=== PATIENT | male | born 1945 | race Caucasian/White ===

== ENCOUNTER 2017-01-31 10:38 | Outpatient (CLI) | payer MEDICARE ==
[2017-01-31 12:27] LABS: #Eosinphils 0.1 thou/uL (0.0-0.7); #Lymphocytes 2.1 thou/uL (1.20-3.40); #Monocytes 0.4 thou/uL (0.11-0.59); #Neutrophils 3.8 thou/uL (1.40-6.50); %Basophils 0.6 % (0.0-1.0); %Eosinophils 1.1 % (0.0-10.0); %Lymphocytes 32.7 % (21.0-51.0); %Monocytes 6.6 % (0.0-10.0); Hematocrit 43.9 % (42.0-52.0); Mean Platelet Volume 9.6 fL (7.4-10.4); Red Blood Cell (RBC) Count 4.56 mill/uL (4.70-6.10); White Blood Cell (WBC) Count 6.4 thou/uL (4.8-10.8)
[2017-01-31 12:43] LABS: Anion Gap 10 mmol/L (10-20); BUN (Urea Nitrogen) 17 mg/dL (8.4-25.7); Calc. Creatinine Clearance 0 mL/min (70-130); Calcium 9.1 mg/dL (7.8-10.44); Carbon Dioxide 26 mmol/L (23-31); Chloride 105 mmol/L (98-107); Estimated GFR-MDRD Greater than 90
--- NOTE | 2017-02-03 06:47 | EKG ---
Test Reason : Blood Pressure : / mmHG Vent. Rate : 066 BPM Atrial Rate : 066 BPM P-R Int : 156 ms QRS Dur : 092 ms QT Int : 400 ms P-R-T Axes : 069 091 043 degrees QTc Int : 419 ms Normal sinus rhythm with sinus arrhythmia Rightward axis Borderline ECG No previous ECGs available Confirmed by SILVIA CROWLEY ([id number]) on 02/03/2017 6:47:08 AM Referred By: LINDY Confirmed By:SILVIA CROWLEY
--- NOTE | 2017-02-03 13:17 | RAD ---
PA AND LATEARL VIEWS OF CHEST: Date: 01/31/17 HISTORY: Preoperative evaluation. FINDINGS: Comparison made with exam of 10/08/15. FINDINGS: The heart size is normal. The lungs are well expanded without focal areas of consolidation, pneumoth orax, or pleural effusions. There are changes of DISH of spine. IMPRESSION: No radiographic evidence of acute cardiopulmonary process. POS: [facility]
== END 2017-01-31 10:39 | disposition home or self-care (01) ==
LOC: LABBT 10:38
PROVIDERS: ATTEND Orthopaedic Surgery
DX: Z01.818 Encounter for other preprocedural examination (principal); M75.102 Unspecified rotator cuff tear or rupture of left shoulder, not specified as traumatic
CPT/HCPCS: 71020; 80048; 85025; 93005; 93010

== ENCOUNTER 2017-02-04 07:34 | Day surgery (SDC) | payer MEDICARE ==
[2017-01-31 11:15] VITALS: BMI 24.2
[2017-02-04] MEDS ORDERED: Ropivacaine 0.2% HCl/PF 20 ML ONE (08:10)
[2017-02-04] MEDS ORDERED: Midazolam HCl 2 mg/2 ml Vial ONE (08:10)
[2017-02-04] MEDS ORDERED: Lidocaine 1% (PF) 30 ML VIAL ONE (08:10)
[2017-02-04] MEDS ORDERED: Fentanyl 100 MCG/2 ML VIAL ONE (08:10)
[2017-02-04] MEDS ORDERED: Ondansetron HCl/PF 4 MG/2 ML Vial IVP PRN (08:40)
[2017-02-04] MEDS ORDERED: traMADol HCl 50 MG TAB PO PRN ×2 (08:40)
[2017-02-04] MEDS ORDERED: HYDROcodone/Acetaminophen 10/325 mg Tablet PO PRN ×2 (08:40)
[2017-02-04] MEDS ORDERED: Zolpidem Tartrate 5 MG TAB PO PRN (08:40)
[2017-02-04] MEDS ORDERED: Ropivacaine 0.2% 550 ML 550 ML NERVE BLCK SCH (08:40)
[2017-02-04] MEDS ORDERED: Promethazine HCl 25 MG/ML VIAL IM PRN (08:40)
[2017-02-04] MEDS ORDERED: Fentanyl 100 MCG/2 ML VIAL IV PRN (08:41)
--- NOTE | 2017-02-04 11:25 | OP ---
DATE OF PROCEDURE: 02/04/2017 PREOPERATIVE DIAGNOSIS: Rotator cuff, left shoulder. POSTOPERATIVE DIAGNOSES: Rotator cuff, left shoulder. SURGERY: Arthroscopic subacromial decompression, arthroscopic rotator cuff repair. SURGEON: Koby Garces M.D. ANESTHESIA: General. BLOOD LOSS: Minimal. SPECIMEN: None. DRAINS: None. COMPLICATIONS: None. STUDIO COORDINATOR: None. PROCEDURE: The patient was taken to the operating room where general anesthesia was induced. The p atient placed in right lateral decubitus position. Left arm was placed in traction and prepped and draped in the usual sterile fashion. Scope was placed in the glenohumeral joint, which just had larry e mild degenerative changes appropriate for age and there was a full-thickness rotator cuff tear. S cope was placed in the subacromial bursa. He had a longitudinal tear extending essentially from the glenoid all the way out laterally over the greater tuberosity. I did an anterior and inferior acro mioplasty, removed the CA ligament, extensive bursectomy was performed. I debrided the rotator cuff back to better tissue. I placed 4 side to side sutures with a very good opposition of the tissues, then placed a single anchor laterally and passed sutures through the cuff, tied the tendon down to freshen up cancellous bone. Shoulder was then drained, and portals closed with nylon suture and isac rile dressings applied. There were no complications.
== END 2017-02-04 13:40 ==
LOC: SDC 07:34
PROVIDERS: ATTEND Orthopaedic Surgery
PROC: 0LB24ZZ Excision of Left Shoulder Tendon, Percutaneous Endoscopic Approach (ICD-10-PCS; principal; 2017-02-04)
DX: M75.122 Complete rotator cuff tear or rupture of left shoulder, not specified as traumatic (principal); D17.79 Benign lipomatous neoplasm of other sites; G40.909 Epilepsy, unspecified, not intractable, without status epilepticus; J44.9 Chronic obstructive pulmonary disease, unspecified; Z90.89 Acquired absence of other organs; Z98.52 Vasectomy status; Z98.890 Other specified postprocedural states; Z87.891 Personal history of nicotine dependence; Z79.51 Long term (current) use of inhaled steroids
CPT/HCPCS: 29827; 97110; 97139; A4306; G8984; G8985; G8986; J2001; J2250; J2795; J3010

== ENCOUNTER 2020-03-12 05:44 | Outpatient (CLI) | payer MEDICARE ==
[2020-03-12 08:55] LABS: Hemoglobin 14.7 g/dL (14.0-18.0); Mean Corpuscular HGB CONC 33.3 G/DL (32.0-36.0); Mean Corpuscular Hemoglobin 31.3 PG (27.0-33.0); Mean Platelet Volume 11.3 fl (7.4-10.4); Platelet Count 154 10x3/uL (130-400); RBC Distribution Width 11.8 % (11.5-14.5); White Blood Cell (WBC) Count 6.3 10x3/uL (4.5-11.0)
[2020-03-12 09:38] LABS: Anion Gap 11 mmol/L (10-20); BUN (Urea Nitrogen) 15 mg/dL (8.4-25.7); Calc. Creatinine Clearance 0 mL/min (70-130); Calcium 9.1 mg/dL (7.8-10.44); Carbon Dioxide 32 mmol/L (23-31); Chloride 100 mmol/L (98-107); Estimated GFR-MDRD Greater than 90; Glucose 111 mg/dL (83-110); Potassium 4.5 mmol/L (3.5-5.1); Sodium 138 mmol/L (136-145)
[2020-03-13 18:38] LABS: SARS-CoV-2 MS2 Positive; SARS-CoV-2 N Gene Negative; SARS-CoV-2 S Gene Negative; SARS-CoV-2 by NAA Not Detected (NotDetected); SARS-CoV-2 orf1ab Negative
== END 2020-03-12 05:45 | disposition home or self-care (01) ==
LOC: LABBT 05:44
PROVIDERS: ATTEND Neurological Surgery
DX: Z01.818 Encounter for other preprocedural examination (principal); Z20.828 Contact with and (suspected) exposure to other viral communicable diseases; M54.16 Radiculopathy, lumbar region
CPT/HCPCS: 80048; 85027; U0003; 87635

== ENCOUNTER 2020-03-12 08:00 | Inpatient (IN) | payer MEDICARE ==
[2020-03-14 09:52] VITALS: BMI 25.0
[2020-03-17] MEDS ORDERED: Fentanyl 250 MCG/5 ML VIAL ONE (09:25)
[2020-03-17] MEDS ORDERED: Promethazine HCl 25 MG/ML VIAL SLOW IVP PRN (11:03)
[2020-03-17] MEDS ORDERED: Ondansetron HCl/PF 4 MG/2 ML Vial IVP PRN (11:03)
[2020-03-17] MEDS ORDERED: HYDROmorphone 2 MG/ML VIAL SLOW IVP PRN (11:03)
[2020-03-17] MEDS ORDERED: Promethazine HCl 25 MG/ML VIAL IM PRN ×2 (11:03→12:45)
[2020-03-17] MEDS ORDERED: Fentanyl 100 MCG/2 ML VIAL ONE (11:08)
--- NOTE | 2020-03-17 12:04 | OP ---
DATE OF PROCEDURE: 03/17/2020 LURE MAKER: Alyssa Arreola PA-C PROCEDURES PERFORMED: Removal of hardware, L5-S1; exploration of spinal fusion, L5-S1; right L4-L5 laminectomy, facetectomy, foraminotomy; interbody arthrodesis, intervertebral biomechanical device, local morselized autograft, demineralized bone matrix, posterolateral arthrodesis pedicle screw instrumentation, L4 through S1. DESCRIPTION OF PROCEDURE: The patient was brought to the operating room and intubated. He was rolled in a prone position on gel-filled chest rolls. The previous incision was reopened and extended, exposing L4 through S1. We identified the prior hardware. We removed the nuts and rods. Then, explored the L5-S1 fusion and I could not determine whether this was solid. We next exposed L4-L5, performed a right L4-L5 laminectomy, facetectomy, foraminotomy, and diskectomy. We identified the herniated disk fragment and removed this and completely decompressed the right L4 and L5 nerve roots. We incised the L4-L5 disk and completely debrided it. The bony endplates were then decorticated for the purpose of arthrodesis and appropriate-sized intervertebral biomechanical PEEK device was brought into the field, filled with demineralized bone matrix and local morselized autograft, and tapped in place securely at L4-L5. Next, pedicle screw was placed at L4 and the pedicle screw at L5 was replaced as it had been in the way of the decompression. The moise was then secured between these screws, connected by nuts, which were final tightened. The wound was then extensively irrigated and MAC hemostasis was secured. A combination of demineralized bone matrix, local morselized autograft was laid over the left lamina and posterolateral surfaces for the purpose of arthrodesis. Vancomycin powder was applied and the wound was then closed in anatomic layers. Job ID: [id number]
[2020-03-17] MEDS ORDERED: PHENYLEPHRINE-NS 100 MCG/ML 10 ML SYRINGE ONE (12:06)
[2020-03-17] MEDS ORDERED: Glycopyrrolate 0.2 MG/ML 5 ML SYRINGE ONE (12:06)
[2020-03-17] MEDS ORDERED: ePHEDrine 50 MG/ML VIAL ONE (12:06)
[2020-03-17] MEDS ORDERED: Rocuronium Bromide 10 MG/ML (10ML VIAL) ONE (12:06)
[2020-03-17] MEDS ORDERED: Ondansetron PF 4 MG/2 ML Vial ONE (12:06)
[2020-03-17] MEDS ORDERED: Ketorolac Tromethamine 30 MG/ML VIAL ONE (12:06)
[2020-03-17] MEDS ORDERED: PROPOFOL 200 MG/20 ML VIAL ONE (12:06)
[2020-03-17] MEDS ORDERED: Lidocaine 1% PF 5 ML VIAL ONE (12:06)
[2020-03-17] MEDS ORDERED: Tamsulosin HCl 0.4 MG CAP ONE (12:18)
[2020-03-17] MEDS ORDERED: Sodium Chloride 0.9% 1,000 ML IV SCH (12:45)
[2020-03-17] MEDS ORDERED: tiZANidine HCl 4 MG TAB PO PRN (12:45)
[2020-03-17] MEDS ORDERED: Acetaminophen/Codeine 30-300mg Tablet PO PRN ×2 (12:45)
[2020-03-17] MEDS ORDERED: Morphine 2 MG/ML VIAL SLOW IVP PRN (12:45)
[2020-03-17] MEDS ORDERED: Morphine 4 MG/ML VIAL SLOW IVP PRN (12:45)
[2020-03-17] MEDS ORDERED: traMADol HCl 50 MG TAB PO PRN ×2 (12:45)
[2020-03-17] MEDS ORDERED: diphenhydrAMINE 50 MG/ML VIAL IVP PRN (12:45)
[2020-03-17] MEDS ORDERED: Promethazine HCl 12.5 MG SUPP PR PRN (12:45)
[2020-03-17] MEDS ORDERED: Mag-Al 1200 mg/1200 mg/30 ML UDCUP PO PRN (12:45)
[2020-03-17] MEDS ORDERED: Promethazine 25 MG TAB PO PRN (12:45)
[2020-03-17] MEDS ORDERED: Ondansetron PF 4 MG/2 ML Vial IM PRN (12:45)
[2020-03-17] MEDS ORDERED: diphenhydrAMINE 25 MG CAP PO PRN (12:45)
--- NOTE | 2020-03-17 13:23 | PRG ---
DATE OF SERVICE: 03/17/2020 The patient is few hours postop L4-L5 decompression and extension of fusion. Following the surgery he was transitioned to PACU. He has been holding in PACU because there are no surgical beds up stairs. He reports his pain is well controlled with p.o. medications, he is tolerating p.o. and he has been voiding appropriately. The patient looks quite well and he would actually like to go home. I discussed this with Dr. Whiting and he agrees that this is appropriate. We will transition the patient to day stay where they can continue to monitor him appropriately and if he does continues to do well, we will plan to dismiss him home this afternoon. Job ID: [id number]
[2020-03-17] MEDS ORDERED: Morphine 2 MG/ML VIAL ONE (13:45)
[2020-03-17] MEDS ORDERED: CEFAZOLIN 2 GM in Premix Bag 1 BAG IVPB SCH (16:00)
[2020-03-17] MEDS ORDERED: Mometasone 200 MCG/Formoterol 5 MCG 120 PUFF INHALER INH SCH (18:30)
[2020-03-17] MEDS ORDERED: levETIRAcetam 500 MG TAB PO SCH (21:00)
[2020-03-17] MEDS ORDERED: Losartan 25 MG TAB PO SCH (21:00)
[2020-03-17] MEDS ORDERED: Cholestyramine/Aspartame 4 gm Packet PO SCH (22:00)
--- NOTE | 2020-03-17 23:14 | DIS ---
DATE OF ADMISSION: 03/17/2020 DATE OF DISCHARGE: 03/17/2020 PROCEDURE: Removal of hardware L4-L5 decompression and fusion. DISCHARGE SUMMARY: Patient is a 74-year-old male recently evaluated in our office for progressive claudicatory leg pain and found to have increased degenerative changes and stenosis above his prior fusion. He underwent removal of hardware in L4-L5 decompression and fusion. Following the surgery, he was transitioned to PACU where he was monitored closely. He was held in PACU for quite a bit of time because there were no inpatient beds available. I visited to assess his progress in the PACU today. He reports his pain is well controlled on p.o. medication, he is tolerating regular diet, and voiding appropriately. He is moving his legs easily in the bed. Patient would actually like to go home and after discussing with Dr. Amaya, we felt since the patient was doing well, that this was appropriate course of action for the patient. We will transition him over to day stay, monitor him, and if he continues to do well, dismiss this afternoon. We will follow up in 2 weeks with x-rays. Job ID: [id number]
[2020-03-18] MEDS ORDERED: Tamsulosin HCl 0.4 MG CAP PO SCH (06:00)
[2020-03-18] MEDS ORDERED: Dutasteride 0.5 MG CAP PO SCH (09:00)
== END 2020-03-17 18:38 | disposition home or self-care (01) | DRG 455 ==
LOC: SURG A 03-17 07:03
PROVIDERS: ADMIT Neurological Surgery; ATTEND Neurological Surgery
PROC: 0SG00AJ Fusion of Lumbar Vertebral Joint with Interbody Fusion Device, Posterior Approach, Anterior Column, Open Approach (ICD-10-PCS; principal; 2020-03-17)
PROC: 0SG0071 Fusion of Lumbar Vertebral Joint with Autologous Tissue Substitute, Posterior Approach, Posterior Column, Open Approach (ICD-10-PCS; 2020-03-17)
PROC: 0SG30AJ Fusion of Lumbosacral Joint with Interbody Fusion Device, Posterior Approach, Anterior Column, Open Approach (ICD-10-PCS; 2020-03-17)
PROC: 0SP304Z Removal of Internal Fixation Device from Lumbosacral Joint, Open Approach (ICD-10-PCS; 2020-03-17)
PROC: 01NB0ZZ Release Lumbar Nerve, Open Approach (ICD-10-PCS; 2020-03-17)
PROC: 0SG3071 Fusion of Lumbosacral Joint with Autologous Tissue Substitute, Posterior Approach, Posterior Column, Open Approach (ICD-10-PCS; 2020-03-17)
PROC: 0SB20ZZ Excision of Lumbar Vertebral Disc, Open Approach (ICD-10-PCS; 2020-03-17)
DX: M48.062 Spinal stenosis, lumbar region with neurogenic claudication (principal); Z20.828 Contact with and (suspected) exposure to other viral communicable diseases; J44.9 Chronic obstructive pulmonary disease, unspecified; G40.909 Epilepsy, unspecified, not intractable, without status epilepticus; M51.16 Intervertebral disc disorders with radiculopathy, lumbar region; Z85.048 Personal history of other malignant neoplasm of rectum, rectosigmoid junction, and anus; Z79.899 Other long term (current) drug therapy
CPT/HCPCS: 76000; C1713; C1768; J0690; J1885; J2270; J2405; J2704; J3010; J3370; J3490

== ENCOUNTER 2020-04-03 12:54 | Outpatient (CLI) | payer MEDICARE ==
--- NOTE | 2020-04-03 13:49 | RAD ---
LUMBAR SPINE: 04/03/30 Two views. HISTORY: Lumbar radiculopathy. Postop. FINDINGS: There are skin dylan overlying the mid cervical spine posteriorly. Pedicle screws are now seen at L4, L5 and S1 on the right with rods. Interbody implant at L4-5 has be en placed. There is an anterolisthesis at L5-S1 of grade I to II. Loss of disc space at L5-S1. Mild c ompression of L2 and L3 vertebrae with prominent osteophytes. IMPRESSION: Postoperative and degenerative changes of lumbar spine noted. POS: [facility]
== END 2020-04-03 12:55 | disposition home or self-care (01) ==
LOC: TBSIIMAG 12:54
PROVIDERS: ATTEND Neurological Surgery
DX: M47.26 Other spondylosis with radiculopathy, lumbar region (principal); Z98.890 Other specified postprocedural states
CPT/HCPCS: 72100

== ENCOUNTER 2020-05-26 11:13 | Outpatient (CLI) | payer MEDICARE ==
--- NOTE | 2020-05-26 11:33 | RAD ---
Lumbar spine 2 views: 05/26/2020 COMPARISON: 04/03/2020 HISTORY: Lumbar stenosis, prior surgery FINDINGS: There is mild degenerative dextroscoliosis of the mid lumbar spine. Lateral osteophyte form ation noted on the right at the L1-2, L2-3, and L3-4 levels, and on the left at the L4-5 level. An intervertebral disc device is present at the L4-5 level. Stable right-sided L4, L5, and S1 pedicle sc rews with vertically oriented interlocking moise. Stable multilevel facet hypertrophy throughout the lumbar spine. Stable mild anterolisthesis at L5-S1 and retrolisthesis at L3-4. There is disc space narrowing with d egenerative endplate change and anterior osteophyte formation at L1-2, L2-3, and L3-4. Atherosclerotic calcification of the abdominal aorta noted. IMPRESSION: Multilevel postoperative and degenerative change within the lumbar spine as detailed radha mir
== END 2020-05-26 11:14 | disposition home or self-care (01) ==
LOC: TBSIIMAG 11:13
PROVIDERS: ATTEND Neurological Surgery
DX: M48.062 Spinal stenosis, lumbar region with neurogenic claudication (principal); M47.816 Spondylosis without myelopathy or radiculopathy, lumbar region; Z98.890 Other specified postprocedural states
CPT/HCPCS: 72100

== ENCOUNTER 2020-12-02 12:59 | Outpatient (CLI) | payer MEDICARE | END 2020-12-02 13:00 | disposition home or self-care (01) | LOC: BICRAD 12:59 | PROVIDERS: ATTEND Internal Medicine Critical Care Medicine | DX: R06.00 Dyspnea, unspecified (principal) | CPT/HCPCS: 71046 ==